=== PATIENT | female | born 1950 | race American Indian/Alaskan Native ===

== ENCOUNTER 2017-11-03 09:00 | Outpatient (CLI) | payer MEDICARE ==
--- NOTE | 2017-11-03 10:11 | Mammography Report ---
BILATERAL MAMMOGRAM: FINDINGS: The breast tissue is heterogeneously dense, which could obscure detection of small masses (approximately 50%-75% glandular). No mass, distortion, suspicious calcification, or skin change is seen. No significant change when compared to exams dating back to 2015. CAD was utilized. IMPRESSION: Negative mammogram. There is no mammographic evidence of malignancy. RECOMMENDATION: Follow-up per ACS guidelines. BI-RADS CATEGORY: 1 = Negative ACR BI-RADS MAMMOGRAPHIC CODES: 0 = Needs additional imaging evaluation; 1 = Negative; 2 = Benign; 3 = Probably benign; 4 = Suspicious; 5 = Malignant; 6 = Known biopsy-proven malignancy COMMENT: 1. Dense breast tissue, i.e., adenosis, fibrocystic changes, etc., may obscure an underlying neoplasm. 2. Approximately 10% of cancers are not detected with mammography. 3. A negative mammography report should not delay biopsy if a clinically suspicious mass is present. COMMENT: Patient follow-up letters are generated in [employer].
== END 2017-11-03 09:01 | disposition home or self-care (01) ==
LOC: SPVWC 09:00
PROVIDERS: ATTEND Internal Medicine
DX: Z12.31 Encounter for screening mammogram for malignant neoplasm of breast (principal)
CPT/HCPCS: 77067; G0202

== ENCOUNTER 2018-12-29 08:39 | Outpatient (CLI) | payer MEDICARE ==
--- NOTE | 2018-12-29 15:15 | Mammography Report ---
BILATERAL DIGITAL SCREENING MAMMOGRAM with CAD: 12/29/18 08:39:00 CLINICAL: Routine screening. COMPARISON: 11/03/17 FINDINGS: The breasts are heterogeneously dense, which may obscure small masses.No mass, architectural distortion or suspicious calcifications. IMPRESSION: No mammographic evidence of malignancy. BI-RADS CATEGORY: 1 -- Negative RECOMMENDATION: Routine mammographic screening in one year. COMMENT: Patient follow-up letters are generated by our [employer] application.
== END 2018-12-29 08:40 | disposition home or self-care (01) ==
LOC: SPVWC 08:39
PROVIDERS: ATTEND Internal Medicine
DX: Z12.31 Encounter for screening mammogram for malignant neoplasm of breast (principal)
CPT/HCPCS: 77067

== ENCOUNTER 2019-06-06 08:07 | Outpatient (CLI) | payer MEDICARE ==
--- NOTE | 2019-06-06 11:15 | Ultrasound Report ---
RENAL ULTRASOUND HISTORY: PRIOR RIGHT RENAL MASS RESECTION C64.1 COMPARISON: None available. TECHNIQUE: Multiple real-time ultrasonographic grayscale images were obtained of the kidneys and urin samanta bladder. FINDINGS: Right kidney: No significant abnormality. No hydronephrosis. Focal upper pole postsurgical scar. Kid enrrique measures 9.7 x 3.2 x 3.1 cm. Left kidney: Normal. No hydronephrosis. Kidney measures 10.1 x 4.5 x 4.3 cm. Urinary bladder: Normal. Additional findings: None. IMPRESSION: 1. Right upper pole postsurgical scar and otherwise normal right kidney. 2. Normal left kidney. 3. Normal urinary bladder. Signer Name: Roger Santos MD Signed: 06/06/2019 11:11 AM Workstation Name: [id number]
== END 2019-06-06 08:08 | disposition home or self-care (01) ==
LOC: SPVWC 08:07
PROVIDERS: ATTEND Internal Medicine
DX: C64.1 Malignant neoplasm of right kidney, except renal pelvis (principal)
CPT/HCPCS: 76770

== ENCOUNTER 2020-01-02 08:20 | Outpatient (CLI) | payer MEDICARE ==
--- NOTE | 2020-01-02 13:39 | Mammography Report ---
DIGITAL SCREENING MAMMOGRAM WITH CAD, 01/02/2020 INDICATION: Routine screening mammography. TECHNIQUE: Digital bilateral 2D mammography was obtained in the craniocaudal and mediolateral obliq ue projections. This examination was interpreted with the benefit of Computer-Aided Detection analysi s. COMPARISON: 12/29/2018 and mammograms going back to 10/22/2015 FINDINGS: Breast Density: The breasts are heterogeneously dense, which may obscure small masses. There is no evidence of dominant mass, suspicious calcifications or suspicious architectural distorti on in either breast. Mild benign scar in the left inner breast. IMPRESSION: No mammographic evidence of malignancy. Follow up recommendation: Routine yearly BI-RADS Category 2: Benign. A "normal" or negative report should not discourage follow up or biopsy of a clinically significant f inding. A written summary of these findings will be mailed to the patient. The patient will be entered into a mammography reporting system which will generate a reminder letter for the patient's next appointmen t at the appropriate interval. The [employer] recommends yearly mammograms starting at age 40 and continuing as l elaina as a woman is in good health. Breast MRI is recommended for women with an approximate 20-25% or greater lifetime risk of breast cancer, including women with a strong family history of breast or ova violeta cancer or who have been treated for Hodgkin's disease. Signer Name: Roger Santos MD Signed: 01/02/2020 1:34 PM Workstation Name: [id number]
== END 2020-01-02 08:21 | disposition home or self-care (01) ==
LOC: SPVWC 08:20
PROVIDERS: ATTEND Internal Medicine
DX: Z12.31 Encounter for screening mammogram for malignant neoplasm of breast (principal)
CPT/HCPCS: 77067

== ENCOUNTER 2021-03-15 13:03 | Outpatient (CLI) | payer MEDICARE ==
--- NOTE | 2021-03-15 17:51 | Mammography Report ---
DIGITAL SCREENING MAMMOGRAM, 03/15/2021 CLINICAL INFORMATION / INDICATION: Routine screening TECHNIQUE: Digital bilateral 2D mammography was obtained in the craniocaudal and mediolateral obliqu e projections. COMPARISON: 01/02/2020 FINDINGS: Breast Density: There are scattered areas of fibroglandular density. No dominant mass, suspicious calcifications, or architectural distortion in either breast. Mild benign-appearing nodularity is again seen. IMPRESSION: No mammographic evidence of malignancy. Follow up recommendation: Routine yearly BI-RADS Category 2: Benign. A "normal" or negative report should not discourage follow up or biopsy of a clinically significant f inding. A written summary of these findings will be mailed to the patient. The patient will be entered into a mammography reporting system which will generate a reminder letter for the patient's next appointmen t at the appropriate interval. The [employer] recommends yearly mammograms starting at age 40 and continuing as l elaina as a woman is in good health. Breast MRI is recommended for women with an approximate 20-25% or greater lifetime risk of breast cancer, including women with a strong family history of breast or ova violeta cancer or who have been treated for Hodgkin's disease. Signer Name: Ivan Blake MD Signed: 03/15/2021 5:46 PM Workstation Name: [email or web address])
== END 2021-03-15 13:04 | disposition home or self-care (01) ==
LOC: SPVWC 13:03
PROVIDERS: ATTEND Internal Medicine
DX: Z12.31 Encounter for screening mammogram for malignant neoplasm of breast (principal); N64.89 Other specified disorders of breast
CPT/HCPCS: 77067

== ENCOUNTER 2021-07-10 10:25 | Outpatient (CLI) | payer MEDICARE ==
--- NOTE | 2021-07-10 14:30 | Ultrasound Report ---
ULTRASOUND PELVIS INDICATION / CLINICAL INFORMATION: PELVIC PAIN R10.2. TECHNIQUE: Transabdominal and Transvaginal. Duplex Color Doppler used: Yes. COMPARISON: None available FINDINGS: UTERUS: Surgically absent. RIGHT ADNEXA: Right oophorectomy. No significant adnexal abnormality. LEFT ADNEXA: The left ovary measures 1.7 x 1.4 x 1.6 cm. There is a small central calcification noted . Normal color Doppler blood flow. URINARY BLADDER: No significant abnormality. FREE FLUID: None. ADDITIONAL FINDINGS: None. IMPRESSION: 1. Prior hysterectomy and right oophorectomy. 2. Small central left ovarian calcification. Otherwise no significant abnormality. Scribed by: Inessa Marinelli RDMS, RVT Scribed: 07/10/2021 1:05 PM I have reviewed the images, agree with this report, and edited this report as needed. Signer Name: Chano Sandoval MD Signed: 07/10/2021 2:25 PM Workstation Name: [id number]
== END 2021-07-10 10:26 | disposition home or self-care (01) ==
LOC: SPVWC 10:25
PROVIDERS: ATTEND Internal Medicine
DX: N85.8 Other specified noninflammatory disorders of uterus (principal); Z90.710 Acquired absence of both cervix and uterus
CPT/HCPCS: 76830; 76856

== ENCOUNTER 2022-07-22 12:32 | Outpatient (CLI) | payer MEDICARE ==
--- NOTE | 2022-07-23 08:29 | Mammography Report ---
DIGITAL SCREENING MAMMOGRAM WITH CAD, 07/22/2022 CLINICAL INFORMATION / INDICATION: Routine screening mammography. TECHNIQUE: Digital bilateral 2D mammography was obtained in the craniocaudal and mediolateral oblique projections. This examination was interpreted with the benefit of Computer-Aided Detection analysis. COMPARISON: 10/20/2013 through 03/15/2021. FINDINGS: Breast Density: There are scattered areas of fibroglandular density. No dominant mass, suspicious calcifications, or architectural distortion in either breast. IMPRESSION: No mammographic evidence of malignancy. Follow up recommendation: Routine yearly screening mammogram. BI-RADS Category 1: NEGATIVE A "normal" or negative report should not discourage follow up or biopsy of a clinically significant f inding. A written summary of these findings will be mailed to the patient. The patient will be entered into a mammography reporting system which will generate a reminder letter for the patient's next appointmen t at the appropriate interval. The [employer] recommends yearly mammograms starting at age 40 and continuing as l elaina as a woman is in good health. Breast MRI is recommended for women with an approximate 20-25% or greater lifetime risk of breast cancer, including women with a strong family history of breast or ova violeta cancer or who have been treated for Hodgkin's disease. Signer Name: Cory Vital MD Signed: 07/23/2022 8:25 AM Workstation Name: [id number]
== END 2022-07-22 12:33 | disposition home or self-care (01) ==
LOC: SPVWC 12:32
PROVIDERS: ATTEND Internal Medicine
DX: Z12.31 Encounter for screening mammogram for malignant neoplasm of breast (principal)
CPT/HCPCS: 77067